=== PATIENT | female | born 1955 | race Caucasian/White ===

== ENCOUNTER 2016-12-24 16:41 | Observation (INO) | payer OTHER, BC ==
[~2016-12-24] VITALS: Ht 160 cm; Wt 96.5 kg
[~2016-12-24 16:41] MED LIST: AMITRIPTYLINE H10 M1 PO; AMITRIPTYLINE H10 MG PO; ANTIVERT25 MG PO; CLEOCIN300 MG PO; FENOFIBRATE200 MG PO; FIORICET 50-301 EACH PO; FIORICET 50-321 EAC1 PO; FIORICET,ESG1 TABLET PO; FLONASE16 G1 BOTH NARES; FLUTICASONE PRO16 G1 NS; GABAPENTIN100 MG PO; HYDROCHLOROTHIA25 MG PO; LOFIBRA200 MG PO; MECLIZINE HCL25 M3 PO; METFORMIN HCL500 MG PO; METOCLOPRAMIDE10 MG PO; METOPROLOL SUCC25 MG PO; NUCYNTA50 MG PO; PREDNISONE20 MG PO; PREMARIN1.25 MG PO; PROAIR HFA8.5 GM IH; PROMETHAZINE HC25 M1 PO; PROMETHAZINE12.5 M1 PO; PROTONIX40 MG PO; REGLAN10 M1 PO; SINGULAIR10 MG PO; TOPIRAMATE50 MG PO; TRAMADOL HCL50 MG PO; ZEGERID40 MG PO
[2016-12-24 16:52] LABS: HEMATOCRIT 36.1 % (36.0-46.0); MCHC 33.2 G/DL (30.0-36.0); MCV 81.3 FL (83-99); MEAN PLAT.VOLUME 10.5 uM^3 (9.5-12.4); PLATELET COUNT 392 K/uL (156-360); RBC DIS.WIDTH-CV 15.1 % (11.8-14.6); RBC DIS.WIDTH-SD 44.5 % (39-53); RED BLOOD COUNT 4.44 M/uL (3.80-5.20); WHITE BLOOD COUNT 9.5 K/uL (4.1-10.2)
[2016-12-24 17:00] LABS: CHLORIDE 104 mEq/L (99-109); POTASSIUM 3.2 mEq/L (3.7-5.4); SODIUM 139 mEq/L (136-147)
[2016-12-24 17:02] LABS: GLUCOSE 119 mg/dL (70-99)
[2016-12-24 17:03] VITALS: BP 133/65
[2016-12-24 17:03] LABS: ANION GAP 12 MEQ/L (2-14)
[2016-12-24 17:04] LABS: TOTAL BILIRUBIN 0.3 mg/dL (0.0-1.0)
[2016-12-24 17:05] LABS: ALKALINE PHOSPHATASE 98 IU/L (3-129)
[2016-12-24 17:06] LABS: GFR ESTIMATE (CALCULATED) > 59 mL/min/
[2016-12-24 17:07] LABS: UREA NITROGEN (BUN) 13 mg/dL (9-23)
[2016-12-24 17:09] LABS: LIPASE 23 U/L (1.0-51.0)
[2016-12-24 17:12] LABS: TROP-I INTERPRETATION NEGATIVE; TROPONIN-I < 0.01 ng/mL (0.0-0.30)
[2016-12-24 17:31] VITALS: BP 127/63
[2016-12-24 18:02] VITALS: BP 144/69
[2016-12-24 23:00] VITALS: BP 121/69
[2016-12-24 23:31] LABS: TROP-I INTERPRETATION NEGATIVE; TROPONIN-I < 0.01 ng/mL (0.0-0.30)
[2016-12-25 03:54] VITALS: BP 119/58
[2016-12-25 06:18] LABS: TROP-I INTERPRETATION NEGATIVE; TROPONIN-I 0.03 ng/mL (0.0-0.30)
[2016-12-25 07:11] VITALS: BP 111/53
[2016-12-25 08:11] LABS: ANION GAP 10 MEQ/L (2-14); CHLORIDE 105 MEQ/L (99-109); POTASSIUM 3.5 MEQ/L (3.7-5.4); SAMPLE HEMOLYSIS CHECK 0; SAMPLE ICTERIC CHECK 0; SAMPLE LIPEMIA CHECK 0; SODIUM 141 MEQ/L (136-147)
[2016-12-25 08:16] LABS: GFR ESTIMATE (CALCULATED) > 59 mL/min/; GLUCOSE 103 mg/dL (70-99); UREA NITROGEN (BUN) 11 mg/dL (9-23)
== END 2016-12-25 10:44 | disposition home or self-care (01) ==
LOC: EME 16:41 → 5WEST 22:03 → EDOF 22:03 → 5WEST 22:49
PROVIDERS: Emergency Medicine; Hospitalist; Nurse Practitioner Adult Health
DX: R10.13 Epigastric pain (principal); F41.0 Panic disorder [episodic paroxysmal anxiety]; E87.6 Hypokalemia; I10 Essential (primary) hypertension; E11.9 Type 2 diabetes mellitus without complications; E78.5 Hyperlipidemia, unspecified; G43.909 Migraine, unspecified, not intractable, without status migrainosus; E66.9 Obesity, unspecified; Z68.37 Body mass index [BMI] 37.0-37.9, adult; Z82.49 Family history of ischemic heart disease and other diseases of the circulatory system; Z83.3 Family history of diabetes mellitus; Z80.1 Family history of malignant neoplasm of trachea, bronchus and lung; Z88.5 Allergy status to narcotic agent; Z88.6 Allergy status to analgesic agent
CPT/HCPCS: 71010; 80048; 80053; 83690; 84484; 85027; 93005; 99202; 99281; 99285; G0378; J1644; J2060; J2405; J7030

== ENCOUNTER 2017-05-12 20:59 | Observation (INO) | payer OTHER, BC ==
[~2017-05-12] VITALS: Ht 160 cm; Wt 101.3 kg
[2017-05-12 21:47] LABS: HEMATOCRIT 32.9 % (36.0-46.0); MCH 26.6 PG (29.0-34.0); MCHC 31.9 G/DL (30.0-36.0); MCV 83.5 FL (83-99); MEAN PLAT.VOLUME 10.3 uM^3 (9.5-12.4); PLATELET COUNT 303 K/uL (156-360); RBC DIS.WIDTH-CV 15.3 % (11.8-14.6); RBC DIS.WIDTH-SD 46.5 % (39-53); RED BLOOD COUNT 3.94 M/uL (3.80-5.20); WHITE BLOOD COUNT 8.4 K/uL (4.1-10.2)
[2017-05-12 21:52] LABS: CHLORIDE 105 mEq/L (99-109); POTASSIUM 3.4 mEq/L (3.7-5.4); SODIUM 139 mEq/L (136-147)
[2017-05-12 21:54] LABS: GLUCOSE 122 mg/dL (70-99)
[2017-05-12 21:55] LABS: ANION GAP 7 MEQ/L (2-14)
[2017-05-12 21:58] LABS: GFR ESTIMATE (CALCULATED) > 59 mL/min/; UREA NITROGEN (BUN) 13 mg/dL (9-23)
[2017-05-12 22:05] LABS: TROP-I INTERPRETATION NEGATIVE; TROPONIN-I < 0.01 ng/mL (0.0-0.30)
[2017-05-12 23:00] LABS: D-DIMER ELISA 0.32 mg/L FEU (< 0.57); INTER. NORMALIZED RATIO 1.1; PROTHROMBIN TIME 10.7 (9.2-11.2); PTT 24.5 (25-32)
[2017-05-13] MEDS ORDERED: ZYRTEC10 M3 PO (00:04)
[2017-05-13] MEDS ORDERED: ATORVASTATIN CA10 MG PO (00:04)
[2017-05-13] MEDS ORDERED: OMEPRAZOLE40 M1 PO (00:04)
[2017-05-13 01:49] VITALS: BP 138/71
[2017-05-13 04:38] LABS: HEMATOCRIT 30.4 % (36.0-46.0); MCH 26.2 PG (29.0-34.0); MCHC 31.6 G/DL (30.0-36.0); MCV 83.1 FL (83-99); MEAN PLAT.VOLUME 10.3 uM^3 (9.5-12.4); PLATELET COUNT 278 K/uL (156-360); RBC DIS.WIDTH-CV 15.2 % (11.8-14.6); RBC DIS.WIDTH-SD 46.4 % (39-53); RED BLOOD COUNT 3.66 M/uL (3.80-5.20); WHITE BLOOD COUNT 7.2 K/uL (4.1-10.2)
[2017-05-13 04:58] LABS: CHLORIDE 107 mEq/L (99-109); POTASSIUM 3.6 mEq/L (3.7-5.4); SODIUM 141 mEq/L (136-147)
[2017-05-13 05:00] LABS: GLUCOSE 122 mg/dL (70-99)
[2017-05-13 05:01] LABS: ANION GAP 6 MEQ/L (2-14)
[2017-05-13 05:02] LABS: TOTAL BILIRUBIN 0.2 mg/dL (0.0-1.0)
[2017-05-13 05:04] LABS: ALKALINE PHOSPHATASE 77 IU/L (3-129); GFR ESTIMATE (CALCULATED) > 59 mL/min/
[2017-05-13 05:05] LABS: UREA NITROGEN (BUN) 15 mg/dL (9-23)
[2017-05-13 05:10] LABS: TROP-I INTERPRETATION NEGATIVE; TROPONIN-I < 0.01 ng/mL (0.0-0.30)
[2017-05-13 05:54] LABS: IRON 24 MCG/DL (35-150)
[2017-05-13 06:27] VITALS: BP 108/54
[2017-05-13 08:33] LABS: FERRITIN 4 NG/ML (10-291)
[2017-05-13 11:16] VITALS: BP 122/64
[2017-05-13 11:23] LABS: TROP-I INTERPRETATION NEGATIVE; TROPONIN-I < 0.01 ng/mL (0.0-0.30)
[2017-05-14 07:34] LABS: Estimated Average Glucose 137 mg/dL (70-123); HEMOGLOBIN A1c (GLYCOHEMOGLOB) 6.4 % HGB (Below 5.7)
== END 2017-05-13 15:40 | disposition home or self-care (01) ==
LOC: EME 20:59 → EDOF 05-13 00:19 → 5WEST 05-13 01:31
PROVIDERS: Internal Medicine
DX: R07.9 Chest pain, unspecified (principal); I10 Essential (primary) hypertension; J45.30 Mild persistent asthma, uncomplicated; E11.9 Type 2 diabetes mellitus without complications; E78.5 Hyperlipidemia, unspecified; R06.00 Dyspnea, unspecified; R61 Generalized hyperhidrosis; E87.6 Hypokalemia; G43.809 Other migraine, not intractable, without status migrainosus; K21.9 Gastro-esophageal reflux disease without esophagitis; Z88.6 Allergy status to analgesic agent; Z88.5 Allergy status to narcotic agent; Z91.09 Other allergy status, other than to drugs and biological substances; Z88.1 Allergy status to other antibiotic agents
CPT/HCPCS: 71020; 80048; 80053; 82728; 83036; 83540; 83880; 84466; 84484; 85027; 85379; 85610; 85730; 93005; 94640; 99202; 99281; 99284; G0378; J1644; J2405; J7030

== ENCOUNTER 2017-09-24 04:18 | Emergency (ER) | payer OTHER, BC ==
[~2017-09-24] VITALS: Ht 160 cm; Wt 101.5 kg
[~2017-09-24 04:18] MED LIST changes: +ATORVASTATIN CA10 MG PO; +OMEPRAZOLE40 M1 PO; +ZYRTEC10 M3 PO
[2017-09-24 04:45] LABS: MCHC 31.8 G/DL (30.0-36.0); MCV 81.9 FL (83-99); MEAN PLAT.VOLUME 10.5 uM^3 (9.5-12.4); PLATELET COUNT 314 K/uL (156-360); RBC DIS.WIDTH-CV 15.3 % (11.8-14.6); RBC DIS.WIDTH-SD 45.9 % (39-53); RED BLOOD COUNT 4.15 M/uL (3.80-5.20); WHITE BLOOD COUNT 7.3 K/uL (4.1-10.2)
[2017-09-24 04:52] LABS: CHLORIDE 106 mEq/L (99-109); POTASSIUM 3.4 mEq/L (3.7-5.4); SODIUM 138 mEq/L (136-147)
[2017-09-24 04:54] LABS: GLUCOSE 153 mg/dL (70-99)
[2017-09-24 04:55] LABS: ANION GAP 9 MEQ/L (2-14)
[2017-09-24 04:58] LABS: GFR ESTIMATE (CALCULATED) 38 mL/min/
[2017-09-24 04:59] LABS: UREA NITROGEN (BUN) 13 mg/dL (9-23)
[2017-09-24] MEDS ORDERED: ZITHROMAX Z-PA250 MG PO (05:23)
[2017-09-24] MEDS ORDERED: PREDNISONE20 MG PO (05:23)
[2017-09-24 06:01] VITALS: BP 110/72
== END 2017-09-24 06:02 | disposition home or self-care (01) ==
LOC: EME 04:18
DX: J45.909 Unspecified asthma, uncomplicated (principal); R05 Cough; R06.02 Shortness of breath; E11.9 Type 2 diabetes mellitus without complications; I10 Essential (primary) hypertension; I25.2 Old myocardial infarction; K21.9 Gastro-esophageal reflux disease without esophagitis; Z88.6 Allergy status to analgesic agent
CPT/HCPCS: 71020; 80048; 85027; 94640; 99281; 99284; J7512

== ENCOUNTER 2018-01-21 07:00 | Day surgery (SDC) | payer OTHER, BC ==
[~2018-01-21] VITALS: Ht 160 cm; Wt 101.6 kg
[~2018-01-21 07:00] MED LIST changes: +ASMANEX TW200 MICRO1 IH; +TESSALON PERLE100 MG PO; +ZITHROMAX Z-PA250 MG PO
== END 2018-01-21 08:45 | disposition home or self-care (01) ==
LOC: PAIN 07:00 → SDC 07:30 → PAIN 08:45
DX: M47.816 Spondylosis without myelopathy or radiculopathy, lumbar region (principal); D64.9 Anemia, unspecified; G89.29 Other chronic pain; M54.5 Low back pain; M48.061 Spinal stenosis, lumbar region without neurogenic claudication; E11.9 Type 2 diabetes mellitus without complications; E78.5 Hyperlipidemia, unspecified; I10 Essential (primary) hypertension; M53.3 Sacrococcygeal disorders, not elsewhere classified; Z79.818 Long term (current) use of other agents affecting estrogen receptors and estrogen levels; F43.10 Post-traumatic stress disorder, unspecified; Z88.1 Allergy status to other antibiotic agents; Z88.5 Allergy status to narcotic agent; Z88.6 Allergy status to analgesic agent
CPT/HCPCS: J1030; J1885; J2250; S0020

== ENCOUNTER 2018-01-28 06:58 | Day surgery (SDC) | payer OTHER, BC ==
[~2018-01-28] VITALS: Ht 160 cm; Wt 101.1 kg
== END 2018-01-28 08:55 | disposition home or self-care (01) ==
LOC: PAIN 06:58 → SDC 07:30 → PAIN 08:55
DX: M47.816 Spondylosis without myelopathy or radiculopathy, lumbar region (principal); M54.5 Low back pain; G89.29 Other chronic pain; M48.061 Spinal stenosis, lumbar region without neurogenic claudication; M79.1 Myalgia; M53.3 Sacrococcygeal disorders, not elsewhere classified; I10 Essential (primary) hypertension; E78.5 Hyperlipidemia, unspecified; E11.9 Type 2 diabetes mellitus without complications; J45.909 Unspecified asthma, uncomplicated; I25.2 Old myocardial infarction
CPT/HCPCS: J1030; J2250; S0020

== ENCOUNTER 2018-03-08 00:13 | Observation (INO) | payer OTHER, BC ==
[~2018-03-08] VITALS: Ht 160 cm; Wt 99.0 kg
[2018-03-08 00:33] LABS: HEMATOCRIT 38.2 % (36.0-46.0); HEMOGLOBIN 12.5 G/DL (11.9-15.5); MCH 26.5 PG (29.0-34.0); MCHC 32.7 G/DL (30.0-36.0); MCV 80.9 FL (83-99); PLATELET COUNT 383 K/uL (156-360); RBC DIS.WIDTH-CV 15.6 % (11.8-14.6); RBC DIS.WIDTH-SD 46.2 % (39-53); RED BLOOD COUNT 4.72 M/uL (3.80-5.20); WHITE BLOOD COUNT 7.5 K/uL (4.1-10.2)
[2018-03-08 00:41] LABS: CHLORIDE 99 mEq/L (99-109); POTASSIUM 3.3 mEq/L (3.7-5.4); SODIUM 137 mEq/L (136-147)
[2018-03-08 00:42] LABS: GLUCOSE 125 mg/dL (70-99)
[2018-03-08 00:46] LABS: CREATININE 0.9 mg/dL (0.6-1.3); GFR ESTIMATE (CALCULATED) > 59 mL/min/
[2018-03-08 00:47] LABS: UREA NITROGEN (BUN) 9 mg/dL (9-23)
[2018-03-08 00:54] LABS: TROP-I INTERPRETATION NEGATIVE; TROPONIN-I < 0.01 ng/mL (0.0-0.30)
[2018-03-08 01:38] LABS: ALBUMIN 3.7 g/dL (3.2-4.8)
[2018-03-08 01:43] LABS: TOTAL BILIRUBIN 0.3 mg/dL (0.0-1.0)
[2018-03-08 01:44] LABS: ALKALINE PHOSPHATASE 105 IU/L (3-129)
[2018-03-08 01:46] LABS: AST (GOT) 11 IU/L (2-34); DIRECT BILIRUBIN 0.2 mg/dL (0.0-0.3)
[2018-03-08 01:47] LABS: ALT (GPT) 10 IU/L (3-49); LIPASE 18 U/L (1.0-51.0)
[2018-03-08 06:14] VITALS: BP 95/49
[2018-03-08 06:53] LABS: TROP-I INTERPRETATION NEGATIVE; TROPONIN-I < 0.01 ng/mL (0.0-0.30)
[2018-03-08 07:54] VITALS: BP 100/51
[2018-03-08] MEDS ORDERED: PREDNISONE10 M1 PO (09:49)
[2018-03-08] MEDS ORDERED: ALBUTEROL2.5 MG/3 M IH (09:49)
[2018-03-08] MEDS ORDERED: AZITHROMYCIN500 M1 PO (09:49)
[2018-03-08 12:23] LABS: TROP-I INTERPRETATION NEGATIVE; TROPONIN-I < 0.01 ng/mL (0.0-0.30)
[2018-03-08 12:43] VITALS: BP 94/50
== END 2018-03-08 15:45 | disposition home or self-care (01) ==
LOC: EME 00:13 → EDOF 04:54 → ENRESERV 04:56 → 4SOUTH 06:01
PROVIDERS: Internal Medicine
DX: J45.901 Unspecified asthma with (acute) exacerbation (principal); J20.9 Acute bronchitis, unspecified; R07.89 Other chest pain; E87.6 Hypokalemia; I10 Essential (primary) hypertension; E78.5 Hyperlipidemia, unspecified; E11.9 Type 2 diabetes mellitus without complications; G43.909 Migraine, unspecified, not intractable, without status migrainosus; D64.9 Anemia, unspecified; K21.9 Gastro-esophageal reflux disease without esophagitis; E66.9 Obesity, unspecified; I25.2 Old myocardial infarction; Z77.22 Contact with and (suspected) exposure to environmental tobacco smoke (acute) (chronic); Z88.5 Allergy status to narcotic agent; Z88.6 Allergy status to analgesic agent; Z88.1 Allergy status to other antibiotic agents; Z90.710 Acquired absence of both cervix and uterus; Z90.49 Acquired absence of other specified parts of digestive tract
CPT/HCPCS: 71046; 71275; 80048; 80076; 82948; 83690; 84484; 85027; 85379; 93005; 94640; 94640 76; 99202; 99281; 99285; G0378; J1650; J2930; J7030

== ENCOUNTER 2018-06-26 05:30 | Emergency (ER) | payer OTHER, BC ==
[~2018-06-26] VITALS: Ht 160 cm; Wt 104.7 kg
[~2018-06-26 05:30] MED LIST changes: +ALBUTEROL2.5 MG/3 M IH; +AZITHROMYCIN500 M1 PO; +PREDNISONE10 M1 PO
[2018-06-26 06:29] LABS: HEMATOCRIT 30.4 % (36.0-46.0); HEMOGLOBIN 9.7 G/DL (11.9-15.5); MCH 26.1 PG (29.0-34.0); MCHC 31.9 G/DL (30.0-36.0); MCV 81.7 FL (83-99); PLATELET COUNT 289 K/uL (156-360); RBC DIS.WIDTH-CV 14.9 % (11.8-14.6); RBC DIS.WIDTH-SD 44.3 % (39-53); RED BLOOD COUNT 3.72 M/uL (3.80-5.20); WHITE BLOOD COUNT 6.9 K/uL (4.1-10.2)
[2018-06-26 06:37] LABS: CHLORIDE 103 mEq/L (99-109); POTASSIUM 3.1 mEq/L (3.7-5.4); SODIUM 140 mEq/L (136-147)
[2018-06-26 06:39] LABS: GLUCOSE 121 mg/dL (70-99); INTER. NORMALIZED RATIO 1.1
[2018-06-26 06:43] LABS: CREATININE 0.8 mg/dL (0.6-1.3); GFR ESTIMATE (CALCULATED) > 59 mL/min/
[2018-06-26 06:44] LABS: UREA NITROGEN (BUN) 14 mg/dL (9-23)
[2018-06-26 06:51] LABS: TROP-I INTERPRETATION NEGATIVE; TROPONIN-I < 0.01 ng/mL (0.0-0.30)
[2018-06-26 10:55] LABS: TROP-I INTERPRETATION NEGATIVE; TROPONIN-I < 0.01 ng/mL (0.0-0.30)
[2018-06-26] MEDS ORDERED: PREDNISONE20 MG PO (10:59)
[2018-06-26 11:28] VITALS: BP 96/60
== END 2018-06-26 11:30 | disposition home or self-care (01) ==
LOC: EME 05:30
PROVIDERS: Emergency Medicine
DX: R06.00 Dyspnea, unspecified (principal); J44.9 Chronic obstructive pulmonary disease, unspecified; E11.9 Type 2 diabetes mellitus without complications; I25.2 Old myocardial infarction; K21.9 Gastro-esophageal reflux disease without esophagitis; Z88.6 Allergy status to analgesic agent; Z91.013 Allergy to seafood
CPT/HCPCS: 71046; 71275; 80048; 83880; 84484; 85027; 85610; 85730; 93005; 93971; 99281; 99285; J7030; J7512